=== PATIENT | male | born 1985 | race Caucasian/White ===

== ENCOUNTER 2024-03-31 23:20 | Emergency (ER) | payer OTHER, SELFPAY ==
[2024-03-31 23:22] VITALS: BP 171/109; PULSE 122; RESP 16; TEMP 36; O2SAT 100
--- NOTE | 2024-03-31 23:49 | RAD_ITS ---
EXAM: XR ABDOMEN, 1 VIEW CLINICAL INDICATION: constipation TECHNIQUE: Frontal supine view of the abdomen/pelvis. COMPARISON: No relevant prior studies available. FINDINGS: LOWER THORAX: No acute pathology. GASTROINTESTINAL TRACT: Unremarkable. Non-obstructive. No bowel or stomach distention. ORGANS: Unremarkable as visualized. No organomegaly. No abnormal calcifications. BONES/JOINTS: No acute pathology. SOFT TISSUES: No acute pathology. RAD/Abdomen Single View IMPRESSION: Non-obstructive bowel gas pattern. Electronically Signed: Hemant Perez MD at 0:46 EDT ,
--- NOTE | 2024-03-31 23:50 | EDS_ITS ---
HPI History of Present Illness Chief Complaint: Constipation Informant: patient Onset/Context/Timing Onset: Days Narrative Narrative: Patient presents with 3 to 4-day history of constipation. He tried some Dulcolax this afternoon without improvement. He also reports subjective fevers today with some sweats. He does not have significant abdominal pain. No urinary symptoms. He denies cough or congestion. He has never had a colonoscopy before. He denies history of diverticulitis. PFSH PFS Medical History no medical history no medical history Home Medications ?Medication ?Instructions ?Recorded ?Last Taken ?Type sennosides 8.6 mg-docusate sodium 1 tab-cap PO BID PRN constipation 04/01/24 Unknown Rx 50 mg tablet (Senexon-S) #14 tabs Allergy/AdvReac Type Severity Reaction Status Date / Time Penicillins Allergy Intermediate Hives Verified 03/31/24 23:22 Social History Smoking Status: Unknown if ever smoked ROS ROS ED Constitutional Constitutional ED: Reports fever(s), subjective and sweats; Denies chills Eyes Eyes: Denies change in vision or discharge from eye(s) ENT ENT ED: Denies discharge from eye(s), rhinorrhea or sore throat Cardiovascular Cardiovascular: Denies chest pain or palpitations Respiratory/Chest Respiratory/Chest: Denies cough or dyspnea Gastrointestinal Gastrointestinal: Reports constipation; Denies abdominal pain, nausea or vomiting Genitourinary Genitourinary ED: Denies difficulty urinating or dysuria Musculoskeletal Musculoskeletal: Denies back pain or extremity pain Integumentary Denies Abrasions or rash Neurologic Neurologic: Denies headache(s) or weakness Psychiatric Psychiatric: Denies anxiety or depression Allergic/Immunologic Allergic/Immunologic ED: Denies lip swelling or urticaria EXAM Physical Exam Const Vital Signs: 03/31/24 23:22 Temperature 96.8 F L Temperature Source Temporal Pulse Rate 122 H Respiratory Rate 16 Blood Pressure 171/109 H Blood Pressure Mean 129 Pulse Ox 100 Oxygen Delivery Method Room Air Positive well nourished and well developed General Appearance ED: well developed HEENT Reports moist mucous membranes Eyes EOMs intact bilaterally Neck no lymphadenopathy Chest Wall inspection of chest normal and palpation of chest normal Resp normal respiratory effort and clear to auscultation bilaterally Cardio regular rate and regular rhythm GI non-tender Auscultation: hypoactive bowel sounds Palpation: soft Extremity normal to inspection Neuro oriented x3 and no sensory deficits noted Motor Exam: strength 5/5 throughout Psych mental status grossly normal MDM MDM MDM Narrative Medical decision making narrative: Given the patient subjective fever and tachycardia here, IV line will be established. Labwork obtained to evaluate for leukocytosis, anemia, and electrolyte derangement. Abdominal x-ray obtained to evaluate bowel gas pattern. History & Record Review Discussion w/independent historian: Patient Lab Data Attestation: I reviewed the patient's lab results. Labs: Laboratory Results - last 24 hr 03/31/24 23:59 WBC 13.1 H RBC 5.82 Hgb 16.6 H Hct 50.6 MCV 86.9 MCH 28.5 MCHC 32.8 RDW Std Deviation 42.8 RDW Coeff of Bernardo 13.4 Plt Count 301 MPV 9.2 Immature Gran % (Auto) 0.400 Neut % (Auto) 63.3 Lymph % (Auto) 22.9 [place] % (Auto) 9.1 Eos % (Auto) 3.5 Baso % (Auto) 0.8 Absolute Neuts (auto) 8.3 H Absolute Lymphs (auto) 3.00 Nucleated RBC % 0 Sodium 137 Potassium 3.4 L Chloride 105 Carbon Dioxide 26.0 Anion Gap 6 BUN 11 Creatinine 0.99 Est GFR (MDRD) Af Amer 107 Est GFR (MDRD) Non-Af 89 BUN/Creatinine Ratio 11.1 Glucose 122 H Calcium 9.2 Radiography Diagnostic Testing: Clinical Impression(s) from Imaging Studies KUB X-Ray 03/31/24 23:49 IMPRESSION: Non-obstructive bowel gas pattern. Electronically Signed: Hemant Perez MD at 0:46 EDT , Treatment and Re-Evaluation :: White count is mildly elevated at 13.1 with hemoglobin concentrated at 16.6. Chemistry studies unremarkable. Abdominal x-ray per my interpretation reveals none specific bowel gas pattern. Radiology interpretation reviewed and agrees. Patient had been ordered a soapsuds enema, however there is a delay in starting this. When I reevaluated the patient he stated that he was able to go the bathroom a small amount. Repeat vital signs are obtained and improved. We discussed possibility of early diverticulitis given his bump in his white count, subjective fever, and constipation, however he has no abdominal pain and allows deep palpation in both the suprapubic and left lower quadrant. I advised him to watch for this and return. He would prefer a prescription for a stool softener/laxative as opposed to an enema at this time. He also raises concern about a fungal infection to his right great toenail. This is examined. His toenail is thickened but there is no surrounding erythema or sign of secondary bacterial infection. I will refer him to Dr. Galan, on-call for podiatry for follow-up. Discharge Plan Triage Chief Complaint: Constipation ED Provider: Romina Blankenship Dx/Rx/DC Orders Clinical Impression: Constipation Instructions: ED Constipation (Adult) Prescriptions: New sennosides-docusate sodium [Senexon-S] 8.6-50 mg tablet 1 tab-cap PO BID PRN (Reason: constipation) Qty: 14 0RF Primary Care Provider: Care Physician,No Primary Referrals: Markel Galan DPM [Med Staff - Active Staff] - As Needed Reji Ritter DO [Med Staff - Mergers And Acquisitions Manager] - As Needed Care Physician,No Primary [Primary Care Provider] - Print Language: Sudanese Disposition Disposition: Home, Self Care
[2024-04-01 00:09] LABS: Absolute Neutrophil Count 8.3 X10^3/uL (2.0-7.7); Basophil# 0.11 X10^3/uL; Basophil% 0.8 % (0-1); Eosinophil# 0.46 X10^3/uL; Eosinophils% 3.5 % (0-5); Hematocrit 50.6 % (40-54); Hemoglobin 16.6 g/dL (13.0-16.5); Lymphocyte % 22.9 % (19-41); Mean Corp Hgb Conc 32.8 g/dL (32-36); Mean Corpuscular Hgb 28.5 pg (27.0-32.0); Mean Corpuscular Volume 86.9 fL (80-94); Mean Platelet Vol. 9.2 fl (6.2-12.0); Monocyte# 1.19 X10^3/uL; Monocyte% 9.1 % (0-10); NRBC Flagged by Analyzer 0 % (0-5); Neutrophil # 8.27 X10^3/uL (2.7-7.7); Neutrophil % 63.3 % (47-70); Platelet Count 301 K/mm3 (150-450); RBC Distribution Width CV 13.4 % (11.6-14.6); RBC Distribution Width SD 42.8 fl (35.1-43.9); Red Blood Count 5.82 M/mm3 (4.6-6.2); White Blood Count 13.1 K/mm3 (4.4-11.0)
[2024-04-01 00:23] LABS: Anion Gap 6 (5-15); BUN 11 mg/dL (7-18); BUN/Creat Ratio 11.1 RATIO (10-20); Calcium,Total 9.2 mg/dL (8.5-10.1); Chloride 105 mmol/L (98-107); Creatinine, Serum 0.99 mg/dL (0.70-1.30); EST Glomerular Filtration Rate 89 mL/min (>60); Est Glom Filt Rate - Afr Amer 107 mL/min (>60); Glucose 122 mg/dL (74-106); Potassium 3.4 mmol/L (3.5-5.1); Sodium Level 137 mmol/L (136-145)
[2024-04-01 01:42] VITALS: BP 149/89; PULSE 104; RESP 16; TEMP 36.8; O2SAT 100; BMI 32.1
== END 2024-04-01 01:44 | disposition home or self-care (01) ==
PROVIDERS: Emergency Provider Emergency Medicine; Visit Provider Emergency Medicine
DX: K59.00 Constipation, unspecified (principal)
CPT/HCPCS: 74018; 80048; 85025; 99283; A4216